=== PATIENT | female | born 1945 | race Caucasian/White ===

== ENCOUNTER 2023-10-28 07:59 | Inpatient (IN) | payer MEDICARE, OTHER ==
[~2023-10-28] VITALS: Ht 167.6 cm; Wt 89.4 kg
[2023-10-28] VITALS (25 sets, daily range): BP systolic 83–133; BP diastolic 37–94; TEMP 97.5–98.5; O2SAT 92–98
[2023-10-28 09:10] LABS: CALCIUM, SERUM 8.8 mg/dL (8.5-10.1); CARBON DIOXIDE 27 mmol/L (21-32); CHLORIDE 102 mmol/L (98-107); CREATININE 0.9 mg/dL (0.6-1.3); GLUCOSE 163 mg/dL (74-106); POTASSIUM 3.7 mmol/L (3.5-5.1); SODIUM SERUM 139 mmol/L (136-145); UREA NITROGEN, BLOOD 48 mg/dL (7-18)
[2023-10-28 09:27] LABS: ALANINE AMINOTRANSFERASE 62 U/L (12-78); ALKALINE PHOSPHATASE 1030 U/L (46-116); ASPARTATE AMINOTRANSFERASE 77 U/L (15-37); BILIRUBIN,DIRECT 10.6 mg/dL (0.0-0.2); BILIRUBIN,TOTAL 12.5 mg/dL (0.2-1.0); NT-PRO BNP 6758 pg/mL (0-125); TOTAL PROTEIN, SERUM 5.2 g/dL (6.4-8.2)
[2023-10-28] MEDS: IV NS 0.9% 1,000 ML BAG IV ONE (09:30)
[2023-10-28] MEDS: DILTIAZEM HCL IV 125 MG in IV D5W 100 ML IV ONE (09:30)
[2023-10-28] MEDS: DILTIAZEM HCL 25 MG IV IVP ONE (09:38)
[2023-10-28] MEDS ORDERED: DILTIAZEM HCL 25 MG IV ONE (09:39)
[2023-10-28] MEDS ORDERED: IOHEXOL-350 100 ML VIAL IV ONE (10:06)
[2023-10-28] MEDS ORDERED: IV NS 0.9% 250 ML IV ONE (10:07)
[2023-10-28 11:09] LABS: EOSINOPHILS % (AUTO) 3.3 % (0.0-6.0); LYMPHOCYTES # (AUTO) 0.1 K/uL (0.8-4.8); MEAN CORPUSCULAR HEMOGLOBIN 32 PG (26.0-33.0); MEAN CORPUSCULAR HGB CONC 34 g/dl (31.0-36.0); MEAN CORPUSCULAR VOLUME 94 fL (82-100); MONOCYTES # (AUTO) 0.1 K/uL (0.1-1.30); MONOCYTES % (AUTO) 12.4 % (2.0-12.0); NEUTROPHILS # (AUTO) 0.7 K/uL (1.8-8.9); NEUTROPHILS % (AUTO) 72.3 % (43.0-81.0); RED BLOOD CELL COUNT(AUTO) 2.05 MIL/uL (4.0-5.2); RED CELL DISTRIBUTION WIDTH 16.5 % (11.5-15.0)
[2023-10-28 11:20] LABS: HEMATOCRIT 19 % (33-45); HEMOGLOBIN 6.5 g/dL (11.5-14.8); PLATELET COUNT (AUTO) 5 K/uL (150-450)
[2023-10-28] MEDS: VANCOMYCIN 1 GM in IV D5W 250 ML IV ONE (12:55)
[2023-10-28] MEDS ORDERED: ONDANSETRON HCL/PF 4 MG/2 ML VIAL IVP PRN (13:00)
[2023-10-28] MEDS ORDERED: MAG HYDROX/AL HYDROX/SIMETH 30 ML UDC PO PRN (13:00)
[2023-10-28] MEDS: PIPERACILLIN /TAZOBACTAM 3.375 G in IV D5W 50 ML IV ONE (13:00)
[2023-10-28] MEDS ORDERED: Z GUARD REMEDY 4 OZ OINT TP PRN (13:00)
[2023-10-28] MEDS ORDERED: MAGNESIUM HYDROXIDE 30 ML UDC PO PRN (13:00)
[2023-10-28] MEDS ORDERED: SIMV-49 PO (13:22)
[2023-10-28] MEDS ORDERED: OXYB10TA30 PO (13:22)
[2023-10-28] MEDS ORDERED: ACET325C7 PO (13:22)
[2023-10-28] MEDS ORDERED: FURO-145 PO (13:22)
[2023-10-28 13:44] LABS: APPEARANCE,URINE SLIGHTLY CLOUDY (CLEAR); BILIRUBIN,URINE 3+ (NEGATIVE); BLOOD, URINE NEGATIVE Ery/uL (NEGATIVE); COLOR,URINE DARK YELLOW (YELLOW); KETONES,URINE NEGATIVE (NEGATIVE); LEUKOCYTE ESTERASE ,URINE NEGATIVE (NEGATIVE); NITRITE, URINE NEGATIVE (NEGATIVE); PH,URINE 5.5 (5.0-8.0); PROTEIN,URINE 1+ mg/dl (NEGATIVE); UGLUCOSE NEGATIVE (NEGATIVE)
[2023-10-28 13:51] LABS: ADD URINE CULTURE NO; BACTERIA,URINE None seen /HPF (None Seen); RBC,URINE 0-2 /HPF (0-2); SQUAMOUS EPITHELIAL CELL,UR Rare /HPF (None Seen); WBC,URINE 0-2 /HPF (0-3)
[2023-10-28] MEDS ORDERED: PIPERACILLIN /TAZOBACTAM 3.375 G in IV D5W 100 ML IV SCH (14:00)
[2023-10-28] MEDS ORDERED: VANCOMYCIN HCL 1.25 GM in IV D5W 250 ML IV SCH (15:00)
[2023-10-28] MEDS ORDERED: DILTIAZEM HCL IV 125 MG in IV NS 0.9% 100 ML IV SCH (16:30)
[2023-10-28] MEDS: DILTIAZEM HCL IV 125 MG in IV NS 0.9% 100 ML IV SCH (17:13)
[2023-10-28] MEDS: TBO-FILGRASTIM 480 MCG/0.8 ML ML SQ SCH (18:26)
[2023-10-28] MEDS: FOLIC ACID 1 MG TABLET PO SCH (18:34)
[2023-10-28 18:48] LABS: D-DIMER 3.92 mg/L(FEU (0.17-0.50); INR 1.19 (0.91-1.10); PARTIAL THROMBOPLASTIN TIME 35.2 SEC (24.3-34.3); PROTHROMBIN TIME 12.5 SECS (9.2-11.1)
[2023-10-28 19:07] LABS: ANISOCYTOSIS 1+; LYMPHOCYTES % (MANUAL) 12 % (16-48); MONOCYTES % (MANUAL) 12 % (0-11.0); NEUTROPHILS % (MANUAL) 76 (42-76); PLATELET ESTIMATE DECREASED
[2023-10-28 19:08] LABS: OVALOCYTES 1+
[2023-10-28 19:25] LABS: C-REACTIVE PROTEIN 11.25 mg/dL (0.0-0.30)
[2023-10-28 20:50] LABS: RHEUMATOID FACTOR SCREEN NEGATIVE (NEGATIVE)
[2023-10-28] MEDS: PIPERACILLIN /TAZOBACTAM 3.375 G in IV D5W 100 ML IV SCH (21:20)
[2023-10-28] MEDS: ZOLPIDEM TARTRATE 5 MG TABLET PO PRN (23:09)
[2023-10-29] VITALS (81 sets, daily range): BP systolic 70–186; BP diastolic 34–175; TEMP 98–98.7; O2SAT 82–100
[2023-10-29] MEDS: DILTIAZEM HCL 25 MG IV ONE (03:21)
[2023-10-29 04:52] LABS: BASOPHILS % (AUTO) 0.1 % (0.0-2.0); EOSINOPHILS % (AUTO) 1.2 % (0.0-6.0); HEMATOCRIT 25 % (33-45); HEMOGLOBIN 8.9 g/dL (11.5-14.8); LYMPHOCYTES # (AUTO) 0.1 K/uL (0.8-4.8); LYMPHOCYTES % (AUTO) 5.5 % (20.0-44.0); MEAN CORPUSCULAR HEMOGLOBIN 32 PG (26.0-33.0); MEAN CORPUSCULAR HGB CONC 35 g/dl (31.0-36.0); MEAN CORPUSCULAR VOLUME 91 fL (82-100); MONOCYTES # (AUTO) 0.1 K/uL (0.1-1.30); NEUTROPHILS # (AUTO) 1.3 K/uL (1.8-8.9); NEUTROPHILS % (AUTO) 86.2 % (43.0-81.0); RED BLOOD CELL COUNT(AUTO) 2.77 MIL/uL (4.0-5.2); RED CELL DISTRIBUTION WIDTH 15.3 % (11.5-15.0)
[2023-10-29 05:06] LABS: PLATELET COUNT (AUTO) 5 K/uL (150-450); WHITE BLOOD COUNT (AUTO) 1.5 K/uL (4.3-11.0)
[2023-10-29 05:09] LABS: INR 1.21 (0.91-1.10); PARTIAL THROMBOPLASTIN TIME 33.6 SEC (24.3-34.3); PROTHROMBIN TIME 12.7 SECS (9.2-11.1)
[2023-10-29 05:10] LABS: D-DIMER 4.51 mg/L(FEU (0.17-0.50)
[2023-10-29] MEDS: ACETAMINOPHEN 325 MG TABLET PO PRN (05:11)
[2023-10-29 05:17] LABS: ALBUMIN 1.9 g/dL (3.4-5.0); BILIRUBIN,DIRECT 10.8 mg/dL (0.0-0.2); BILIRUBIN,TOTAL 13.5 mg/dL (0.2-1.0); CREATININE 0.7 mg/dL (0.6-1.3); PHOSPHORUS 3.5 mg/dL (2.5-4.9); POTASSIUM 3.6 mmol/L (3.5-5.1)
[2023-10-29] MEDS: PANTOPRAZOLE 40 MG TABLET.DR PO SCH (08:15)
[2023-10-29] MEDS: CLOTRIMAZOLE 1% 15 GM TUBE TP SCH (08:52)
[2023-10-29] MEDS ORDERED: HYDROCODONE/APAP 5/325MG TABLET PO PRN (09:00)
[2023-10-29] MEDS: ALPRAZOLAM 0.25 MG TABLET PO PRN (09:16)
[2023-10-29 09:50] LABS: BAND % (MANUAL) 8 % (0.0-5.0); EOSINOPHILS % (MANUAL) 1 % (0-4); LYMPHOCYTES % (MANUAL) 14 % (16-48); MONOCYTES % (MANUAL) 10 % (0-11.0); NEUTROPHILS % (MANUAL) 67 (42-76); PLATELET ESTIMATE DECREASED
[2023-10-29 09:51] LABS: ANISOCYTOSIS 1+; HYPOCHROMASIA FEW
[2023-10-29 13:31] LABS: ABG BASE EXCESS 1.7 mmol/L; ABG OXYGEN SATURATION 96.9 % (92.0-98.5); ABG PCO2 46.2 mmHg (35.0-45.0); ABG PH 7.385 (7.350-7.450); ABG PO2 98.3 mmHg (75.0-100.0); ABG TOTAL HEMOGLOBIN 8.5 G/dL (12.0-16.0); AaDO2 162.8 mmHg; COHb 0.7 % (0.5-1.5); MetHb 0.2 % (0.0-1.5); SITE, ABG Right Radial; VENT MODE, BG NASAL CANNULA
[2023-10-29] MEDS ORDERED: IV NS 0.9% 250 ML IV ONE (14:47)
[2023-10-29] MEDS ORDERED: CT SWABBABLE VALVE TRANS SET 1 EA INFUS.SET MC ONE (14:47)
[2023-10-29] MEDS ORDERED: IOHEXOL-300 100 ML VIAL IV ONE (14:47)
[2023-10-29] MEDS: VANCOMYCIN HCL 1.25 GM in IV D5W 250 ML IV SCH (15:06)
[2023-10-29 16:52] LABS: LACTIC ACID 2.1 mmol/L (0.4-2.0)
[2023-10-30] VITALS (52 sets, daily range): BP systolic 64–143; BP diastolic 39–125; TEMP 98–98.8; O2SAT 75–100
[2023-10-30 05:11] LABS: EOSINOPHILS % (AUTO) 0.3 % (0.0-6.0); HEMATOCRIT 22 % (33-45); HEMOGLOBIN 7.7 g/dL (11.5-14.8); LYMPHOCYTES # (AUTO) 0.2 K/uL (0.8-4.8); LYMPHOCYTES % (AUTO) 2.3 % (20.0-44.0); MEAN CORPUSCULAR HEMOGLOBIN 32 PG (26.0-33.0); MEAN CORPUSCULAR HGB CONC 35 g/dl (31.0-36.0); MEAN CORPUSCULAR VOLUME 92 fL (82-100); MONOCYTES # (AUTO) 0.1 K/uL (0.1-1.30); MONOCYTES % (AUTO) 1.2 % (2.0-12.0); NEUTROPHILS # (AUTO) 10.4 K/uL (1.8-8.9); NEUTROPHILS % (AUTO) 96.2 % (43.0-81.0); RED CELL DISTRIBUTION WIDTH 16.2 % (11.5-15.0); WHITE BLOOD COUNT (AUTO) 10.8 K/uL (4.3-11.0)
[2023-10-30 05:25] LABS: PLATELET COUNT (AUTO) 41 K/uL (150-450)
[2023-10-30 05:30] LABS: CALCIUM, SERUM 8.9 mg/dL (8.5-10.1); MAGNESIUM 1.9 mg/dL (1.8-2.4); PHOSPHORUS 3.5 mg/dL (2.5-4.9); POTASSIUM 3.3 mmol/L (3.5-5.1)
[2023-10-30 05:41] LABS: INR 1.16 (0.91-1.10); PROTHROMBIN TIME 12.2 SECS (9.2-11.1)
[2023-10-30 05:44] LABS: D-DIMER 6.2 mg/L(FEU (0.17-0.50)
[2023-10-30 05:57] LABS: LACTIC ACID 2.7 mmol/L (0.4-2.0)
[2023-10-30 05:58] LABS: NEUTROPHILS % (MANUAL) 73 (42-76)
[2023-10-30 05:59] LABS: ANISOCYTOSIS 1+; BAND % (MANUAL) 9 % (0.0-5.0); EOSINOPHILS % (MANUAL) 0 % (0-4); LYMPHOCYTES % (MANUAL) 10 % (16-48); MONOCYTES % (MANUAL) 8 % (0-11.0); PLATELET ESTIMATE DECREASED
[2023-10-30 07:07] LABS: HEPATITIS B SURFACE AB Non Reactive (.)
[2023-10-30] MEDS: FUROSEMIDE 20 MG TABLET PO SCH (08:40)
[2023-10-30] MEDS: OXYBUTYNIN CHLORIDE ER 5 MG TAB PO SCH (08:40)
[2023-10-30 09:12] LABS: IMMUNOGLOBULIN A, SERUM 77 mg/dL (64-422); IMMUNOGLOBULIN G, SERUM 618 mg/dL (586-1602)
[2023-10-30] MEDS: POTASSIUM CL. PREMIX PERIPHER. 50 ML IV SCH (11:18)
[2023-10-30 12:11] LABS: *SPE ALBUMIN 2.1 g/dL (2.9-4.4); *SPE ALPHA-1-GLOBULIN 0.4 g/dL (0.0-0.4); *SPE ALPHA-2-GLOBULIN 0.7 g/dL (0.4-1.0); *SPE BETA GLOBULIN 0.7 g/dL (0.7-1.3); *SPE GLOBULIN, TOTAL 2.2 g/dL (2.2-3.9); *SPE M-SPIKE Not Observed g/dL (Not Observed); *SPE PROTEIN TOTAL 4.3 g/dL (6.0-8.5); *SPEGAMMA GLOBULIN 0.5 g/dL (0.4-1.8)
[2023-10-30 13:07] LABS: FREE KAPPA LT CHAINS SERUM 11.8 mg/L (3.3-19.4); FREE LAMBDA LT CHAIN SERUM 10.2 mg/L (5.7-26.3); KAPPA/LAMBDA RATIO SERUM 1.16 (0.26-1.65)
[2023-10-30] MEDS ORDERED: PROSOURCE / PROSTAT (PYXIS) 30 ML UDC PO SCH (17:00)
[2023-10-31 08:06] LABS: IMMUNOGLOBULIN M, SERUM 19 mg/dL (26-217)
== END 2023-10-30 17:40 | disposition hospice, home (50) | DRG 871 ==
LOC: ER 08:00 → TELE-TD 12:50 → ICU 16:34
PROVIDERS: ADMIT Student in an Organized Health Care Education/Training Program; ATTEND Student in an Organized Health Care Education/Training Program
PROC: 05HC33Z Insertion of Infusion Device into Left Basilic Vein, Percutaneous Approach (ICD-10-PCS; principal; 2023-10-28)
PROC: B54NZZA Ultrasonography of Left Upper Extremity Veins, Guidance (ICD-10-PCS; 2023-10-28)
PROC: 30233N1 Transfusion of Nonautologous Red Blood Cells into Peripheral Vein, Percutaneous Approach (ICD-10-PCS; 2023-10-28)
PROC: 30233R1 Transfusion of Nonautologous Platelets into Peripheral Vein, Percutaneous Approach (ICD-10-PCS; 2023-10-28)
DX: A41.9 Sepsis, unspecified organism (principal); D61.810 Antineoplastic chemotherapy induced pancytopenia; J96.01 Acute respiratory failure with hypoxia; E43 Unspecified severe protein-calorie malnutrition; J15.69 Pneumonia due to other Gram-negative bacteria; I21.A1 Myocardial infarction type 2; C49.9 Malignant neoplasm of connective and soft tissue, unspecified; C78.7 Secondary malignant neoplasm of liver and intrahepatic bile duct; D84.9 Immunodeficiency, unspecified; E87.20 Acidosis, unspecified; R64 Cachexia; C78.02 Secondary malignant neoplasm of left lung; C78.01 Secondary malignant neoplasm of right lung; J98.11 Atelectasis; I48.91 Unspecified atrial fibrillation; Z92.21 Personal history of antineoplastic chemotherapy; E78.5 Hyperlipidemia, unspecified; I11.0 Hypertensive heart disease with heart failure; I25.2 Old myocardial infarction; I48.0 Paroxysmal atrial fibrillation; I50.9 Heart failure, unspecified; Z92.3 Personal history of irradiation; Z51.5 Encounter for palliative care; Z66 Do not resuscitate; Z79.899 Other long term (current) drug therapy; R74.01 Elevation of levels of liver transaminase levels; Z68.31 Body mass index [BMI] 31.0-31.9, adult; T45.1X5A Adverse effect of antineoplastic and immunosuppressive drugs, initial encounter; Y92.009 Unspecified place in unspecified non-institutional (private) residence as the place of occurrence of the external cause; D64.9 Anemia, unspecified; C76.2 Malignant neoplasm of abdomen; I87.8 Other specified disorders of veins; K44.9 Diaphragmatic hernia without obstruction or gangrene; E80.6 Other disorders of bilirubin metabolism; L89.026 Pressure-induced deep tissue damage of left elbow; L89.106 Pressure-induced deep tissue damage of unspecified part of back; L89.156 Pressure-induced deep tissue damage of sacral region; Z85.89 Personal history of malignant neoplasm of other organs and systems
CPT/HCPCS: 36410; 36415; 36600; 71045-TC; 76700-TC; 80048-TC; 80076-TC; 81001; 82140-TC; 82607-TC; 82728-TC; 82784; 82803-TC; 83540-TC; 83605-TC; 83690-TC; 83735-TC; 83880; 84100-TC; 84155; 84165; 84484-TC; 85025-TC; 85378-TC; 85396; 86140-TC; 86225; 86235; 86334; 86431-TC; 86706; 86803; 86850-TC; 87040-TC; 87086-TC; 87340; 93307-TC; 93970-TC; 94799-TC; A4223; A6253; G0378; J1447; J2543; J3370; J3480; J3490; J7030; J7040; J7050; J7060; P9016; P9034; Q9967